=== PATIENT | female | born 2000 | race Caucasian/White ===

== ENCOUNTER 2023-09-19 01:37 | Inpatient (IN) | payer OTHER ==
[2023-09-19] MEDS ORDERED: ENALAPRILAT DIHYDRATE 1.25 MG/1 ML VIAL IVPB ONE (02:02)
[2023-09-19] MEDS ORDERED: NITROGLYCERIN SUBLINGUAL 1/150 0.4 MG TAB SL ONE ×2 (02:13→02:19)
[2023-09-19] MEDS ORDERED: ENALAPRILAT DIHYDRATE 2.5 MG/2 ML VIAL IVPB ONE (02:19)
[2023-09-19 02:37] LABS: BASO % 0.5 % (0-2.0); EOS % 0.8 % (0-4.5); HEMATOCRIT 31.1 % (32.4-45.2); HEMOGLOBIN 9.9 GM/dL (10.7-15.3); LYMPH % 20.6 % (8-40); MCH 21.7 pg (25.7-33.7); MEAN PLT VOLUME 8.1 fl (7.5-11.1); MONO % 5.6 % (3.8-10.2); NEUT % 72.5 % (42.8-82.8); PLATELET COUNT 293 10^3/uL (134-434); RBC 4.58 M/mm3 (3.60-5.2); RDW 19.9 % (11.6-15.6); WHITE BLOOD COUNT 10.6 K/mm3 (4.0-10.0)
[2023-09-19 02:44] LABS: INR 1.09 (0.83-1.09); PROTHROMBIN TIME (PATIENT) 12.6 SEC (9.7-13.0)
[2023-09-19] MEDS ORDERED: CEFTRIAXONE 1 GM in DEXTROSE 5%-WATER - 50 ML IVPB ONE (03:03)
[2023-09-19] MEDS ORDERED: AZITHROMYCIN IVPB 500 MG in DEXTROSE 5%-WATER - 250 ML IVPB ONE (03:03)
[2023-09-19 03:06] LABS: POTASSIUM 4.3 mmol/L (3.5-5.1)
[2023-09-19] MEDS ORDERED: CEFTRIAXONE 1 GM/50 ML BAG ONE ×2 (03:07→09:05)
[2023-09-19 03:08] LABS: ALBUMIN 2.5 g/dl (3.4-5.0); BLOOD UREA NITROGEN 30.3 mg/dL (7-18); CALCIUM 7.9 mg/dL (8.5-10.1)
[2023-09-19] MEDS ORDERED: AZITHROMYCIN IVPB 500 MG/250 ML BAG IVPB ONE ×3 (03:08→09:12)
[2023-09-19 03:12] LABS: CREATININE 1.6 mg/dL (0.55-1.3)
[2023-09-19 03:13] LABS: TOT PROT 5.1 g/dl (6.4-8.2)
[2023-09-19 03:14] LABS: BILIRUBIN,TOTAL 0.3 mg/dL (0.2-1)
[2023-09-19] MEDS ORDERED: ASPIRIN 81 MG CHEWABLE TABLETS PO ONE (04:04)
[2023-09-19] MEDS ORDERED: ASPIRIN 81 MG CHEWABLE TABLETS ONE (04:06)
[2023-09-19] MEDS ORDERED: ONDANSETRON 4 MG/2 ML VIAL IVPUSH ONE (04:14)
[2023-09-19] MEDS ORDERED: ONDANSETRON 4 MG/2 ML VIAL ONE (04:24)
[2023-09-19 05:00] LABS: EPI CELLS 10 /uL (0-25.1); HCG,QUALITATIVE URINE Negative; HYALINE CASTS 0 /uL (0-3.1); URINE APPEARANCE CLEAR; URINE BACTERIA 108 /uL (0-1359); URINE BILIRUBIN NEGATIVE (NEGATIVE); URINE COLOR YELLOW; URINE GLUCOSE (UA) NEGATIVE (NEGATIVE); URINE KETONE NEGATIVE (NEGATIVE); URINE LEUK ESTERASE NEGATIVE (NEGATIVE); URINE NITRITE NEGATIVE (NEGATIVE); URINE PROTEIN 3+ (NEGATIVE); URINE RBC 11 /uL (0-23.9); URINE UROBILINOGEN 0.2 mg/dL (0.2-1.0); URINE WBC 21 /uL (0-25.8)
[2023-09-19 05:14] LABS: ANISOCYTOSIS 2+; MACROCYTOSIS 1+; OVALOCYTE 2+; PLATELET ESTIMATE NORMAL
[2023-09-19] MEDS ORDERED: FUROSEMIDE 40 MG/4 ML INJECTABLE VIAL IVPUSH ONE (05:56)
[2023-09-19] MEDS ORDERED: NITROGLYCERIN 2% OINTMENT - 1GM PACKET TD ONE ×2 (05:57→06:55)
[2023-09-19] MEDS ORDERED: FUROSEMIDE 40 MG/4 ML INJECTABLE VIAL ONE (06:55)
[2023-09-19 08:31] LABS: BASO % 0.3 % (0-2.0); EOS % 0.2 % (0-4.5); HEMOGLOBIN 9.3 GM/dL (10.7-15.3); LYMPH % 11.7 % (8-40); MCH 20.9 pg (25.7-33.7); MCHC 30.2 g/dl (32.0-36.0); MEAN CELL VOLUME 69.3 fl (80-96); MEAN PLT VOLUME 8.3 fl (7.5-11.1); MONO % 3.9 % (3.8-10.2); NEUT % 83.9 % (42.8-82.8); PLATELET COUNT 352 10^3/uL (134-434); RBC 4.47 M/mm3 (3.60-5.2); RDW 19.3 % (11.6-15.6); WHITE BLOOD COUNT 11.5 K/mm3 (4.0-10.0)
[2023-09-19 08:48] LABS: POTASSIUM 3.9 mmol/L (3.5-5.1)
[2023-09-19 08:50] LABS: CALCIUM 8.1 mg/dL (8.5-10.1)
[2023-09-19 08:51] LABS: ALBUMIN 2.6 g/dl (3.4-5.0); BLOOD UREA NITROGEN 26.3 mg/dL (7-18); MAGNESIUM 2.1 mg/dL (1.8-2.4)
[2023-09-19 08:53] LABS: BILIRUBIN,DIRECT 0.1 mg/dL (0.0-0.2)
[2023-09-19 08:54] LABS: CREATININE 1.5 mg/dL (0.55-1.3); PHOSPHOROUS 4.5 mg/dL (2.5-4.9)
[2023-09-19 08:55] LABS: BILIRUBIN,TOTAL 0.3 mg/dL (0.2-1); TOT PROT 5.2 g/dl (6.4-8.2)
[2023-09-19] MEDS ORDERED: ASPIRIN COATED 81 MG TABLET.EC ONE (09:04)
[2023-09-19] MEDS ORDERED: ENALAPRIL MALEATE 5 MG TABLET ONE (09:04)
[2023-09-19] MEDS ORDERED: HEPARIN NA (PORCINE) 5,000 UNITS/ML 1ML VIAL ONE (09:05)
[2023-09-19] MEDS ORDERED: CARVEDILOL 6.25 MG TABLET (FP) ONE (09:05)
[2023-09-19] MEDS: CEFTRIAXONE 1 GM in DEXTROSE 5%-WATER - 50 ML IVPB SCH (09:19)
[2023-09-19] MEDS: HEPARIN NA (PORCINE) 5,000 UNITS/ML 1ML VIAL SQ SCH ×2 (09:19→21:33)
[2023-09-19] MEDS: ASPIRIN COATED 81 MG TABLET.EC PO SCH (09:19)
[2023-09-19] MEDS: AZITHROMYCIN IVPB 250 MG in DEXTROSE 5%-WATER - 250 ML IVPB SCH (09:19)
[2023-09-19] MEDS: CARVEDILOL 6.25 MG TABLET (FP) PO SCH ×2 (09:19→21:33)
[2023-09-19] MEDS: NIFEdipine E.R. 30 MG TABLET PO SCH (09:19)
[2023-09-19] MEDS: ENALAPRIL MALEATE 5 MG TABLET PO SCH (09:19)
[2023-09-19] MEDS ORDERED: NIFEdipine E.R. 30 MG TABLET PO ONE (09:20)
[2023-09-19] MEDS ORDERED: ATENOLOL 25 MG TABLET (FP) PO SCH (10:00)
[2023-09-19 11:13] LABS: METHADONE, UR NEGATIVE (NEGATIVE)
[2023-09-19 11:14] LABS: COCAINE, UR NEGATIVE (NEGATIVE); OPIATES, URI NEGATIVE (NEGATIVE); URINE BARBITURATES NEGATIVE (NEGATIVE)
[2023-09-19 11:15] LABS: PHENCYCLIDINE,URINE NEGATIVE (NEGATIVE); URINE BENZODIAZEPINES NEGATIVE (NEGATIVE)
[2023-09-19 11:25] LABS: URINE AMPHETAMINES NEGATIVE (NEGATIVE)
[2023-09-19] MEDS ORDERED: FUROSEMIDE 40 MG/4 ML INJECTABLE VIAL IVPUSH SCH (13:00)
[2023-09-19 19:36] VITALS: BMI 21.5
[2023-09-20 07:31] LABS: HEMATOCRIT 26.2 % (32.4-45.2); MCH 21.3 pg (25.7-33.7); MCHC 30.7 g/dl (32.0-36.0); MEAN CELL VOLUME 69.3 fl (80-96); MEAN PLT VOLUME 8.4 fl (7.5-11.1); PLATELET COUNT 286 10^3/uL (134-434); RBC 3.78 M/mm3 (3.60-5.2); RDW 19.2 % (11.6-15.6); WHITE BLOOD COUNT 6.4 K/mm3 (4.0-10.0)
[2023-09-20 07:50] LABS: POTASSIUM 4.3 mmol/L (3.5-5.1)
[2023-09-20 07:52] LABS: CALCIUM 7.7 mg/dL (8.5-10.1)
[2023-09-20 07:53] LABS: MAGNESIUM 2.3 mg/dL (1.8-2.4)
[2023-09-20 07:54] LABS: BLOOD UREA NITROGEN 37.7 mg/dL (7-18)
[2023-09-20 07:56] LABS: CREATININE 1.8 mg/dL (0.55-1.3); PHOSPHOROUS 5.1 mg/dL (2.5-4.9)
[2023-09-20] MEDS: CEFTRIAXONE 1 GM in DEXTROSE 5%-WATER - 50 ML IVPB SCH (10:44)
[2023-09-20] MEDS: HEPARIN NA (PORCINE) 5,000 UNITS/ML 1ML VIAL SQ SCH ×2 (10:44→21:10)
[2023-09-20] MEDS: AZITHROMYCIN IVPB 250 MG in DEXTROSE 5%-WATER - 250 ML IVPB SCH (10:44)
[2023-09-20] MEDS: NIFEdipine E.R. 30 MG TABLET PO SCH (10:45)
[2023-09-20] MEDS: CARVEDILOL 6.25 MG TABLET (FP) PO SCH ×2 (10:45→21:10)
[2023-09-20] MEDS: ENALAPRIL MALEATE 5 MG TABLET PO SCH (10:45)
[2023-09-20] MEDS: ASPIRIN COATED 81 MG TABLET.EC PO SCH (10:45)
[2023-09-21 07:54] LABS: HEMATOCRIT 25.9 % (32.4-45.2); HEMOGLOBIN 8.1 GM/dL (10.7-15.3); MCH 21.5 pg (25.7-33.7); MCHC 31.1 g/dl (32.0-36.0); MEAN CELL VOLUME 69.2 fl (80-96); MEAN PLT VOLUME 8.8 fl (7.5-11.1); PLATELET COUNT 296 10^3/uL (134-434); RBC 3.74 M/mm3 (3.60-5.2); RDW 19.6 % (11.6-15.6); WHITE BLOOD COUNT 5.4 K/mm3 (4.0-10.0)
[2023-09-21 08:33] LABS: POTASSIUM 4.5 mmol/L (3.5-5.1)
[2023-09-21 08:41] LABS: ALBUMIN 2.2 g/dl (3.4-5.0); BLOOD UREA NITROGEN 37.8 mg/dL (7-18); CALCIUM 7.9 mg/dL (8.5-10.1); MAGNESIUM 2.3 mg/dL (1.8-2.4)
[2023-09-21 08:44] LABS: CREATININE 1.7 mg/dL (0.55-1.3); PHOSPHOROUS 5.1 mg/dL (2.5-4.9)
[2023-09-21 08:45] LABS: TOT PROT 4.5 g/dl (6.4-8.2)
[2023-09-21 08:46] LABS: BILIRUBIN,TOTAL 0.2 mg/dL (0.2-1)
[2023-09-21] MEDS: NIFEdipine E.R. 30 MG TABLET PO SCH (09:40)
[2023-09-21] MEDS: HEPARIN NA (PORCINE) 5,000 UNITS/ML 1ML VIAL SQ SCH (09:40)
[2023-09-21] MEDS: ASPIRIN COATED 81 MG TABLET.EC PO SCH (09:41)
[2023-09-21] MEDS: ENALAPRIL MALEATE 5 MG TABLET PO SCH (09:41)
[2023-09-21] MEDS: CARVEDILOL 6.25 MG TABLET (FP) PO SCH (09:41)
[2023-09-21] MEDS ORDERED: HYDROXYCHLOROQUINE SO4 200 MG TABLET (FP) PO SCH (10:00)
[2023-09-21] MEDS ORDERED: MYCOPHENOLATE MOFETIL 500 MG TABLET PO SCH (10:00)
[2023-09-21 15:37] VITALS: BP 112/65; PULSE 80; RESP 18; TEMP 97.9
[2023-09-24 04:07] LABS: DRVVT - 23.8 sec (0.0-47.0)
== END 2023-09-21 17:41 | disposition home or self-care (01) | DRG 346 ==
LOC: JER 01:37 → JERBED 03:26 → J4W 17:28
PROVIDERS: ADMIT Internal Medicine; ATTEND Internal Medicine
DX: M32.9 Systemic lupus erythematosus, unspecified (principal); I50.23 Acute on chronic systolic (congestive) heart failure; J18.9 Pneumonia, unspecified organism; I13.0 Hypertensive heart and chronic kidney disease with heart failure and stage 1 through stage 4 chronic kidney disease, or unspecified chronic kidney disease; I50.20 Unspecified systolic (congestive) heart failure; N17.9 Acute kidney failure, unspecified; D64.9 Anemia, unspecified; I16.0 Hypertensive urgency; M19.90 Unspecified osteoarthritis, unspecified site; M32.14 Glomerular disease in systemic lupus erythematosus; N18.30 Chronic kidney disease, stage 3 unspecified
CPT/HCPCS: 0241U-QW; 36415; 71045-TC-FY; 71250-TC; 76775-TC; 80048; 80053; 80076; 80307; 81003; 82570; 83735; 83880; 84100; 84156; 84484; 84703; 85025; 85027; 85610; 85613; 85651; 85732; 86038; 86140; 86160; 86225; 86235; 93005; 93010; 93306-TC; 99285-25; J1644; J7517